=== PATIENT | male | born 1980 | race Caucasian/White ===

== ENCOUNTER 2017-05-25 09:28 | Emergency (ER) | payer MEDICAID ==
[~2017-05-25] VITALS: Ht 152.4 cm; Wt 50.2 kg
[~2017-05-25 09:28] MED LIST: BENZ-38 PO; DIPH-423 PO; DIVA250T33 PO; DOCU250C4 PO; DOCU250C96; FLUT16SP13 NS; GUAI600T45 PO; IBUP-2264 PO; LORA-512 PO; LORA0.5T PO; MIRT30TA8 PO; OMEP20CA10 PO; PROP60TA19 PO; RISP2TAB3 PO; VAL5T PO
[2017-05-25] MEDS ORDERED: AZIT-57 PO (10:19)
[2017-05-25 10:34] VITALS: BP 108/84
== END 2017-05-25 10:34 | disposition home or self-care (01) ==
LOC: ER 09:28
DX: H66.91 Otitis media, unspecified, right ear (principal); R05 Cough; G80.9 Cerebral palsy, unspecified; Z88.5 Allergy status to narcotic agent; Z79.2 Long term (current) use of antibiotics
CPT/HCPCS: 99283

== ENCOUNTER 2018-07-03 23:52 | Emergency (ER) | payer MEDICAID ==
[~2018-07-03] VITALS: Ht 149.9 cm; Wt 50.0 kg
[2018-07-03 23:59] VITALS: BP 122/89
[2018-07-04] MEDS ORDERED: methylPREDNISolone sod succ 125mg/2ml vial IV ONE
[2018-07-04] MEDS ORDERED: famotidine/PF 10 mg/ml inj IV ONE
[2018-07-04] MEDS ORDERED: DIPH-681 PO (01:05)
== END 2018-07-04 01:25 | disposition home or self-care (01) ==
LOC: ER 23:53
DX: L27.1 Localized skin eruption due to drugs and medicaments taken internally (principal); Z88.2 Allergy status to sulfonamides; Z88.5 Allergy status to narcotic agent; Z79.899 Other long term (current) drug therapy
CPT/HCPCS: 96374; 96375; 99283; J2930; J3490

== ENCOUNTER 2019-01-14 13:18 | Emergency (ER) | payer MEDICAID ==
[~2019-01-14] VITALS: Ht 152.4 cm; Wt 48.0 kg
[~2019-01-14 13:18] MED LIST changes: +DIPH-681 PO; +DOCU-329 PO; -DOCU250C4 PO; -IBUP-2264 PO; +IBUP-2697 PO; -OMEP20CA10 PO; +OMEP20CA11 PO
[2019-01-14] MEDS ORDERED: AMOX500C2 PO (13:50)
[2019-01-14 14:26] VITALS: BP 110/73
== END 2019-01-14 14:25 | disposition home or self-care (01) ==
LOC: ER 13:19
DX: H66.91 Otitis media, unspecified, right ear (principal); R62.50 Unspecified lack of expected normal physiological development in childhood; Z86.2 Personal history of diseases of the blood and blood-forming organs and certain disorders involving the immune mechanism; Z88.2 Allergy status to sulfonamides; Z88.5 Allergy status to narcotic agent; Z88.8 Allergy status to other drugs, medicaments and biological substances; Z79.899 Other long term (current) drug therapy
CPT/HCPCS: 99283

== ENCOUNTER 2019-04-01 14:19 | Emergency (ER) | payer MEDICAID ==
[~2019-04-01] VITALS: Ht 152.4 cm; Wt 47.0 kg
[2019-04-01 14:33] VITALS: BP 109/66
[2019-04-01] MEDS ORDERED: OXCA300T16 PO (15:41)
== END 2019-04-01 15:58 | disposition home or self-care (01) ==
LOC: ER 14:19
DX: R62.50 Unspecified lack of expected normal physiological development in childhood (principal); R25.8 Other abnormal involuntary movements; Z86.69 Personal history of other diseases of the nervous system and sense organs; Z88.2 Allergy status to sulfonamides; Z88.5 Allergy status to narcotic agent; Z79.899 Other long term (current) drug therapy
CPT/HCPCS: 99283

== ENCOUNTER 2019-07-07 18:31 | Emergency (ER) | payer MEDICAID ==
[~2019-07-07] VITALS: Ht 152.4 cm; Wt 47.7 kg
[~2019-07-07 18:31] MED LIST changes: -OMEP20CA11 PO; +OMEP20CA15 PO; +OXCA300T16 PO
[2019-07-07 18:37] VITALS: BP 129/108
--- NOTE | 2019-07-07 19:07 | NUR ---
NARDA Santiago at bedside.
== END 2019-07-07 20:35 | disposition home or self-care (01) ==
LOC: ER 18:32
DX: S20.212A Contusion of left front wall of thorax, initial encounter (principal); M25.512 Pain in left shoulder; Z86.69 Personal history of other diseases of the nervous system and sense organs; Z88.2 Allergy status to sulfonamides; Z88.5 Allergy status to narcotic agent; Z88.8 Allergy status to other drugs, medicaments and biological substances; Z79.899 Other long term (current) drug therapy; X58.XXXA Exposure to other specified factors, initial encounter; Y93.89 Activity, other specified; Y92.89 Other specified places as the place of occurrence of the external cause; Y99.8 Other external cause status
CPT/HCPCS: 71045; 99283

== ENCOUNTER 2023-08-05 16:02 | Emergency (ER) | payer MEDICAID ==
[~2023-08-05] VITALS: Ht 152.4 cm; Wt 51.6 kg
[~2023-08-05 16:02] MED LIST changes: +DIAZ5TAB22 PO; -DOCU-329 PO; +DOCU-395 PO; +MIRT-88 PO; -MIRT30TA8 PO; +RISP-32 PO; -RISP2TAB3 PO; -VAL5T PO
[2023-08-05 16:05] VITALS: BP 126/90; PULSE 97; RESP 16; TEMP 97.7; O2SAT 94
[2023-08-05] MEDS: proparacaine 0.5% ophthalmic drops 15ml EACHEYE ONE (17:28)
[2023-08-05] MEDS: fluorescein sod 1mg ophthalmic strip RIGHTEYE ONE (17:28)
[2023-08-05] MEDS ORDERED: ERYT1OIN6 EACHEYE (17:30)
[2023-08-05] MEDS: erythromycin ophthalmic ointment 1gm tube EACHEYE ONE (17:46)
== END 2023-08-05 18:04 | disposition home or self-care (01) ==
LOC: ER 16:03
DX: H10.9 Unspecified conjunctivitis (principal); Z88.2 Allergy status to sulfonamides; Z88.5 Allergy status to narcotic agent; Z79.899 Other long term (current) drug therapy; Z79.1 Long term (current) use of non-steroidal anti-inflammatories (NSAID)
CPT/HCPCS: 99283